=== PATIENT | male | born 1945 ===

== ENCOUNTER 2017-10-09 05:53 | Inpatient (IN) | payer BC, MEDICARE ==
--- OUTSIDE RECORDS SUMMARY | 2017-10-09 05:59 | XMS REPORT ---
:1945 External Reference #:[id number] Author Organization [facility] Address [address] [place] [address] [place] [address] Phone [phone] Care Team Providers Name Role Phone Guy Valverde PA Primary Care Physician Unavailable Payers Type Date Identification Payment Subscriber Numbers Provider Health Maintenance Effective: Policy Number: Medicare [facility] ([facility]) 02/13/2017 [id number] [facility] PayID: [id number] [address] [address] VAHE Rivas [id number] Health Maintenance Expires: Policy Number: Medicare [facility] ([facility]) 11/12/2016 [id number] [facility] Group Number: [id number] [address] [address] PayID: [id number] VAHE R[place] [id number] Medigap Part B Effective: 11/13/2016 Policy Number: Medicare Elvia Bonilla [id number] Expires: 12/13/2016 PayID: [id number] [address] [place] [address] Problems Date Description Provider Status Onset: 07/24/2014 Localized, primary osteoarthritis Cliff Wright M.D. Active Onset: 07/24/2014 Traumatic arthropathy-knee Cliff Wright M.D. Active Onset: 07/24/2014 Closed fracture of upper end of tibia Cliff Wright M.D. Active Onset: 07/24/2014 Arthralgia of the lower leg Cliff Wright M.D. Active Onset: 08/05/2014 Knee joint effusion Cliff Wright M.D. Active Onset: 08/05/2014 Idiopathic progressive polyneuropathy Cliff Wright M.D. Active Onset: 11/13/2014 Unsp fx upper end of r tibia, subs Cliff Wright M.D. Active for clos fx w routn heal Family History Date Family Member(s) Problem(s) Comments General Heart Disease General Cancer General Diabetes Social History Type Date Description Comments Lives With Alone Lives With 2 dogs Occupation Retired ETOH Use Drinks Alcoholic Beverages Rarely Smoking Patient has never smoked Exercise Type/Frequency Exercises regularly Allergies, Adverse Reactions, Alerts Date Description Reaction Status Severity Comments 07/24/2014 NKDA active Medications Medication Date Status Form Strength Qnty SIG Indications Ordering Provider Tylenol Active Tablets 325mg as needed Unknown 00 Ibuprofen Active Tablets 200mg as needed Unknown Ventolin HFA Active Aerosol 108(90Base) 2 puffs Unknown 00 mcg/Act by mouth four times a day as needed Symbicort Active Aerosol 160-4.5mcg/A [address] twice a day Vital Signs Date Vital Result Comment 10/03/2017 Height 72 inches 6'0" Weight 166.00 lb Heart Rate 76 /min BP Systolic Recheck 132 mmHg BP Diastolic Recheck 84 mmHg Respiratory Rate 16 /min Body Temperature 98.0 F BMI (Body Mass Index) 22.5 kg/m2 08/04/2017 Height 72 inches 6'0" Weight 164.00 lb Heart Rate 80 /min BP Systolic Recheck 116 mmHg BP Diastolic Recheck 74 mmHg Respiratory Rate 16 /min Body Temperature 97.4 F BMI (Body Mass Index) 22.2 kg/m2 04/06/2017 Height 72 inches 6'0" Weight 160.00 lb Heart Rate 76 /min BP Systolic Recheck 126 mmHg BP Diastolic Recheck 80 mmHg Respiratory Rate 16 /min Body Temperature 98.3 F BMI (Body Mass Index) 21.7 kg/m2 12/06/2016 Height 72 inches 6'0" Weight 160.00 lb Heart Rate 80 /min BP Systolic Recheck 132 mmHg BP Diastolic Recheck 86 mmHg Respiratory Rate 16 /min Body Temperature 97.6 F BMI (Body Mass Index) 21.7 kg/m2 09/27/2016 Height 72 inches 6'0" Weight 164.00 lb Heart Rate 88 /min BP Systolic Recheck 128 mmHg BP Diastolic Recheck 84 mmHg Respiratory Rate 16 /min Body Temperature 97.7 F BMI (Body Mass Index) 22.2 kg/m2 08/09/2016 Height 72 inches 6'0" Weight 160.00 lb Heart Rate 88 /min BP Systolic Recheck 128 mmHg BP Diastolic Recheck 82 mmHg Respiratory Rate 16 /min Body Temperature 98.0 F BMI (Body Mass Index) 21.7 kg/m2 11/13/2014 Height 73 inches 6'1" Weight 160.00 lb Heart Rate 80 /min BP Systolic Recheck 120 mmHg BP Diastolic Recheck 78 mmHg Respiratory Rate 16 /min Body Temperature 97.7 F Pain Level 0 BMI (Body Mass Index) 21.1 kg/m2 10/30/2014 Height 72 inches 6'0" Weight 140.00 lb Heart Rate 76 /min BP Systolic Recheck 136 mmHg BP Diastolic Recheck 84 mmHg Respiratory Rate 16 /min Body Temperature 98.5 F BMI (Body Mass Index) 19.0 kg/m2 08/12/2014 Height 72 inches 6'0" Weight 150.00 lb Heart Rate 80 /min BP Systolic Recheck 128 mmHg BP Diastolic Recheck 80 mmHg Respiratory Rate 16 /min Body Temperature 98.0 F Pain Level 1 BMI (Body Mass Index) 20.3 kg/m2 08/05/2014 Height 72 inches 6'0" Weight 135.00 lb Heart Rate 80 /min BP Systolic Recheck 124 mmHg BP Diastolic Recheck 80 mmHg Respiratory Rate 16 /min Body Temperature 980.0 F BMI (Body Mass Index) 18.3 kg/m2 07/24/2014 Height 73 inches 6'1" Weight 140.00 lb Heart Rate 104 /min BP Systolic 140 mmHg BP Diastolic 88 mmHg Respiratory Rate 20 /min Body Temperature 98.0 F Pain Level 6 BMI (Body Mass Index) 18.5 kg/m2 Results Test Date Test Result H/L Range Note Inr/Protime 09/25/2017 Inr 0.94 0.77-1.02 Laboratory test finding 09/25/2017 Partial Thrombo 30.2 seconds 26.0- 36.3 Time PTT CBC Auto Diff 09/25/2017 White Blood Count 8.7 10^3/uL 3.5-10.8 Red Blood Count 4.91 10^6/uL 4.00-5.40 Hemoglobin 14.9 g/dL 14.0-18.0 Hematocrit 44 % 42-52 Mean Corpuscular Volume 89 fL 80-94 Mean Corpuscular Hemoglobin 30 pg 27-31 Mean Corpuscular HGB Conc 34 g/dL 31-36 Red Cell Distribution Width 15 % 10.5-15 Platelet Count 281 10^3/uL 150-450 Mean Platelet Volume 7.3 um3 Low 7.4-10.4 Abs Neutrophils 5.7 10^3/uL 1.5-7.7 Abs Lymphocytes 2.0 10^3/uL 1.0-4.8 Abs Monocytes 0.7 10^3/uL 0-0.8 Abs Eosinophils 0.3 10^3/uL 0-0.6 Abs Basophils 0.1 10^3/uL 0-0.2 Abs Nucleated RBC 0 10^3/uL Granulocyte % 65.7 % 38-83 Lymphocyte % 22.5 % Low 25-47 Monocyte % 8.0 % High 0-7 Eosinophil % 3.2 % 0-6 Basophil % 0.6 % 0-2 Nucleated Red Blood Cells % 0.2 Type & Screen 09/25/2017 Patient Blood Type A Positive Antibody Screen NEGATIVE Urinalysis Profile 09/25/2017 Urine Color Yellow Urine Appearance Clear Urine Specific [place] 1.014 1.010-1.030 Urine pH 6.0 5-9 Urine Urobilinogen Negative Negative Urine Ketones Negative Negative Urine Protein Negative Negative Urine Leukocytes Negative Negative Urine Blood 2+ Negative Urine Nitrite Negative Negative Urine Bilirubin Negative Negative Urine Glucose Negative Negative Urine White Blood Cell Trace(0-5/hpf) Absent Urine Red Blood Cell 2+(6-10/hpf) Absent Urine Bacteria Absent Absent Urine Squamous Epithelial Cell Present Absent Comp Metabolic Panel 09/25/2017 Sodium 137 mmol/L 135-145 Potassium 4.2 mmol/L 3.5-5.0 Chloride 101 mmol/L 101-111 Co2 Carbon Dioxide 26 mmol/L 22-32 Anion Gap 10 mmol/L 2-11 Calcium 9.6 mg/dL 8.6-10.3 Albumin 4.6 g/dL 3.2-5.2 Total Bilirubin 0.60 mg/dL 0.2-1.0 Glucose 91 mg/dL 70-100 Blood Urea Nitrogen 12 mg/dL 6-24 Creatinine 0.88 mg/dL 0.67-1.17 BUN/Creatinine Ratio 13.6 8-20 Total Protein 7.4 g/dL 6.4-8.9 Globulin 2.8 g/dL 2-4 Albumin/Globulin Ratio 1.6 1-3 Alkaline Phosphatase 52 U/L 34-104 Alt 28 U/L 7-52 Ast 37 U/L 13-39 Egfr Non- 85.1 >60 Egfr 103.0 >60 1 Urine Culture And 09/25/2017 Urine Culture SEE RESULT BELOW 2 Sensitivities Laboratory test finding 08/05/2014 Body Fluid Cult & Gram SEE RESULT BELOW 3 Stain 1 Because ethnic data is not always readily available, this report includes an eGFR for both -Americans and non- Americans. The National Kidney Disease Education Program (NKDEP) does not endorse the use of the MDRD equation for patients that are not between the ages of 18 and 70, are , have extremes of body size, muscle mass, or nutritional status, or are non- or non-. According to the National Kidney Foundation, irrespective of diagnosis, the stage of the disease is based on the level of kidney function: Stage Description GFR(mL/min/1.73 m(2)) 1 Kidney damage with normal or decreased GFR 90 2 Kidney damage with mild decrease in GFR 60-89 3 Moderate decrease in GFR 30-59 4 Severe decrease in GFR 15-29 5 Kidney failure <15 (or dialysis) 2 SEE RESULT BELOW Name: ELVIA BONILLA Kapil : [address]: Claudio Zavala MD Acct: [id number] Unit: [id number] AGE: 72 Location: [facility] Re09/25/17 SEX: M Status: REG REF SPEC: [id number] YOLY: 09/25/17-[address] [facility] [address]: Claudio Zavala MD REQ: [id number] RECD: 09/25/17 STATUS: SHELBY BAE DR: Guy Valverde Jr PA _ SOURCE: URINE SPDESC: ORDERED: Urine Culture QUERIES: Urine Source: Clean Catch Procedure Result Reported Site Urine Culture Final 09/26/17- 1306 ML No growth of clinically significant organisms * ML - Main Lab . END OF REPORT DEPARTMENT OF PATHOLOGY, [address] [place] [address] Mickey Miner M.D. Director KENDY # [id number] 3 SEE RESULT BELOW Name: ELVIA BONILLA : [address]: Cliff Wright MD Acct: [id number] Unit: [id number] AGE: 69 Location: [facility] Re08/05/14 SEX: M Status: REG REF SPEC: [id number] YOLY: 08/05/14-[address]: Cliff rWight MD REQ: [id number] RECD: 08/06/14 STATUS: COMP _ SOURCE: JOINT FLUI SPDESC:KNEE ORDERED: BF Cult/GS Procedure Result Verified Site Body Fluid Gram Stain Final 08/06/14- 1532 ML No Neutrophils Observed No Organisms Seen Preparation By Cytospin Smear Body Fluid Culture Final 08/09/14- 1020 ML No Growth Day 4 * ML - MAIN LAB ([facility]) . END OF REPORT * ML=Testing performed at Main Lab DEPARTMENT OF PATHOLOGY, [address] [place] [address] Mickey Miner M.D. Director [facility] # [id number] Procedures Date CPT Code Description Status 08/04/2017 Inject/Drain Joint/Bursa Major W/O US Completed 04/06/2017 Inject/Drain Joint/Bursa Major W/O US Completed 12/06/2016 Inject/Drain Joint/Bursa Major W/O US Completed 08/09/2016 Inject/Drain Joint/Bursa Major W/O US Completed 04/22/2015 03266 Diffusing Capacity Completed 04/22/2015 59493 Plethysmography Determination Lung Volumes & Per Airway Completed Resist 04/22/2015 12366 Spirometry Incl Graphic Record Completed 08/05/2014 Inject/Drain Joint/Bursa Major W/O US Completed Encounters Type Date Location Provider CPT E/M Dx Office Visit 08/04/2017 [facility] Claudio Zavala 55339 M12.561 11:00a Of [facility] Office Visit 04/06/2017 [facility] Claudio Zavala 23003 M12.561 9:45a Of [facility] Office Visit 12/06/2016 [facility] Claudio Zavala 38292 M12.561 11:00a Of [facility] R25.1 Office Visit 09/27/2016 1:00p [facility] Claudio Zavala 93883 M12.561 [facility] Office Visit 08/09/2016 2:00p [facility] Claudio Zavala 80364 M12.561 [facility] 11/13/2014 9:30a [facility] Cliff Wright, 02561 M12.561 [facility] M25.461 S82.101D Office Visit 10/30/2014 10:15a [facility] Cliff Wright, 51128 716.16 [facility] 356.4 719.46 715.16 719.06 Office Visit 08/12/2014 10:45a [facility] Cliff Wright, 62060 716.16 [facility].4 719.46 Office Visit 08/05/2014 3:15p [facility] Cliff Wright, 52402 715.16 [facility] 716.16 719.46 719.06 356.4 Office Visit 07/24/2014 1:00p [facility] Cliff Wright, 68417 715.16 [facility] 716.16 823.00 719.46 Plan of Care Future Appointment(s):10/09/2017 7:30 pm - Biju Mtz PA-C at [facility]10/09/2017 7:30 pm - Claudio Zavala M.D. at [facility]10/03/2017 - Claudio Zavala M.D.M12.561 Traumatic arthropathy , right kneeFollow up:5 weeks
[2017-10-09] MEDS ORDERED: Buffered Lidocaine 0.9% SYRIN* 5 ML/SYR SYRINGE INTRADERM ONE (06:00)
[2017-10-09] MEDS ORDERED: celeCOXIB CAP* 200 MG PO ONE (06:00)
[2017-10-09] MEDS ORDERED: Famotidine IV* 10 MG/ML 2 ML (20 mg) IV ONE (06:00)
[2017-10-09] MEDS ORDERED: Gabapentin CAP(*) 300 MG PO ONE (06:00)
[2017-10-09] MEDS ORDERED: Levalbuterol 0.63MG/3ML NEB* UNIT OF USE INH ONE ×2 (06:00→06:12)
[2017-10-09] MEDS ORDERED: Acetaminophen TAB* 325 MG PO ONE (06:00)
[2017-10-09] MEDS ORDERED: Gabapentin CAP(*) 300 MG ONE (06:11)
[2017-10-09] MEDS ORDERED: Famotidine IV* 10 MG/ML 2 ML (20 mg) ONE (06:11)
[2017-10-09] MEDS ORDERED: celeCOXIB CAP* 100 MG ONE (06:11)
[2017-10-09] MEDS ORDERED: ceFAZolin 2 GM PREMIX (*) 2 GM/50 ML BAG IVPB ONE (06:12)
[2017-10-09] MEDS ORDERED: Acetaminophen TAB* 325 MG ONE (06:12)
[2017-10-09] MEDS ORDERED: Lidocaine 2% PF * 5 ML VIAL ONE (06:59)
[2017-10-09] MEDS ORDERED: Propofol* 10 MG/ML 20 ML BTL IV PUSH ONE (06:59)
[2017-10-09] MEDS ORDERED: fentaNYL* 50 MCG/ML 2 ML VIAL (100 MCG VIAL) ONE ×2 (06:59→10:11)
[2017-10-09] MEDS ORDERED: Ondansetron INJ* 2 MG/ML VIAL ONE ×2 (06:59→13:58)
[2017-10-09] MEDS ORDERED: KETAMINE HCL* 50 MG/ML 10 ML VIAL ONE (06:59)
[2017-10-09] MEDS ORDERED: Ketorolac INJ* 30 MG/ML 1 ML VIAL ONE (06:59)
[2017-10-09] MEDS ORDERED: ROPIVACAINE 5 MG/ML 30 ML BTL (0.5%) ONE (06:59)
[2017-10-09] MEDS ORDERED: Dexamethasone IV* 4 MG/ML 1 ML (4 MG) ONE (06:59)
[2017-10-09] MEDS ORDERED: Midazolam* 1 MG/ML 5 ML VIAL (5 MG) ONE (06:59)
[2017-10-09] MEDS ORDERED: Tranexamic Acid 1,000 MG/10 ML SDV IV ONE (07:17)
[2017-10-09] MEDS ORDERED: Bupivacaine 0.25% W/EPI* 10 ML SDV ONE (07:24)
[2017-10-09] MEDS ORDERED: Cisatracurium* 2 MG/ML MDV 5 ML ONE (07:34)
[2017-10-09] MEDS ORDERED: EPHEDrine (Pressors)* 50 MG/ML VIAL ONE (07:44)
[2017-10-09] MEDS ORDERED: Naloxone* 0.4 MG/ML 1 ML VIAL IV PRN (08:46)
[2017-10-09] MEDS ORDERED: Ondansetron INJ* 2 MG/ML VIAL IV PRN ×2 (08:46→09:42)
[2017-10-09] MEDS ORDERED: fentaNYL* 50 MCG/ML 2 ML VIAL (100 MCG VIAL) IV PRN (08:46)
[2017-10-09] MEDS ORDERED: HYDROmorphone INJ1* 1 MG/ML SYRINGE ONE (09:19)
[2017-10-09] MEDS ORDERED: Magnesium Hydroxide LIQ* 30 ML UDC PO PRN (09:42)
[2017-10-09] MEDS ORDERED: Morphine INJ* 2 MG/ML 1 ML SYRINGE (TWO MG - NEW SYRINGE VERSION) IV PRN (09:42)
[2017-10-09] MEDS ORDERED: Bisacodyl SUPP* 10 MG SUPP PR PRN (09:42)
[2017-10-09] MEDS ORDERED: diPHENhydraMINE IV* 50 MG/ML 1 ml VIAL (BENADRYL) IV PRN (09:42)
[2017-10-09] MEDS ORDERED: Albuterol 2.5 MG/3 ML NEB.SOL* (0.083%) INH PRN (09:47)
--- NOTE | 2017-10-09 10:41 | RAD ---
Indication: Status post RIGHT total knee replacement. Comparison: None. Technique: RIGHT knee: AP and crosstable lateral views. Report: RIGHT total knee prosthesis is normally located. Negative for periprosthetic fracture. Anterior cutaneous enrique. Joint effusion and gas. Subcutaneous tissue edema and emphysema. IMPRESSION: #. Unremarkable immediate postop appearance following RIGHT total knee replacement.
[2017-10-09] MEDS: Acetaminophen TAB* 325 MG PO SCH ×3 (14:34→23:58)
[2017-10-09] MEDS ORDERED: celeCOXIB CAP* 100 MG PO ONE (15:00)
[2017-10-09] MEDS: oxyCODONE TAB* 5 MG TAB PO PRN ×2 (15:07→23:58)
--- NOTE | 2017-10-09 15:35 | OP ---
DATE OF OPERATION: 10/09/17 - ROOM #[id number] DATE OF : [birth year] SURGEON: Claudio Zavala MD ASSEMBLER TRIM: Biju Mtz RPA ANESTHESIA: General endotracheal. PRE-OP DIAGNOSIS: Traumatic arthrosis, right knee. POST-OP DIAGNOSIS: Traumatic arthrosis, right knee. OPERATIVE PROCEDURE: Right total knee arthroplasty. ESTIMATED BLOOD LOSS: Less than 50 cc. COMPLICATIONS: None. HARDWARE: Jt Persona #7 femur, G tibia, 10-mm polyethylene spacer, 38-mm all-polyethylene patellar button. SUMMARY: Mr. Bonilla is a 72-year-old male who has been having troubles with his right knee for sometime. He had been treated initially by Dr. Lee at [place] for a meniscus tear and undergone a knee arthroscopy. He still felt pain afterwards and then several years later sustained a minimally displaced tibial plateau fracture that was treated non-operatively but he slowly had increasing pain afterwards. He had been treated conservatively when he presented to me approximately 2 years ago. Physical therapy, anti- inflammatories, and injections all did help some but recently none of them have been giving the relief that he needs. He lives alone and still takes care of the animals and was very interested in having the knee fixed so that it would no longer bother him. I discuss with him that a knee arthroplasty should work well to decrease his pain and improve his function. Risks of surgery such as infection, scar formation, stiffness, DVT, pulmonary embolism, hardware failure , and continued pain were some of the risks discussed. He had a neuropathy which had been worked up years ago and he states that they told him nothing can be done for it. So he already has pre-existing foot numbness as well as bilateral foot drops. He had been declared medically optimized and wished to proceed. DESCRIPTION OF PROCEDURE: The patient was brought to the OR and general endotracheal anesthesia was established. Schmidt catheter was placed. Tourniquet was placed over the proximal right thigh and was used during the case. Total tourniquet time would be 66 minutes. Right knee was prepped and then draped. Skin over the incisional area was infiltrated using 20 cc of 0.25 % Marcaine with epinephrine. Esmarch was used to exsanguinate the leg and the tourniquet was raised. Midline incision was made beginning 5 cm above the superior pole of patella and carried down to the medial side of the tibial tubercle. He was lean and he had very little subcutaneous fat. Few small bleeders encountered were ligated using electrocautery. Medial parapatellar arthrotomy was made. Quite a bit of yellowish clear thick joint fluid was encountered. Fat pad was sharply excised and the soft tissues were sharply elevated from the medial side of the tibia. Patella measured almost 30 mm in thickness and a 12 mm cut was taken. Patella was then easily subluxated laterally and the knee was flexed up. Nice exposure of the distal femur was obtained. He had quite hypoplastic lateral femoral condyle and the drill guide was set at 2 degrees and set initially to resect 2 mm. I would not even touch his lateral femoral condyle in that position. Additional 2 mm was set on the cutting guide and cutting guide was then pinned into place. Distal femoral cut was taken but I did not even come down to the top of the intercondylar notch. Additional 2 mm were taken and I now flattened out the notch. Femur was sized and 7 sat very nicely. Holes were drilled and it could be seen where I would notch the femur and this was moved up 3 steps by inverting the cutting guide, drilling holes, and then checking again. Once the drill came out right on the top side of the cortex, cutting guide was pinned into place and the anterior and posterior femoral cuts followed by the chamfer cuts were taken. Bone was removed and attention was turned to the tibia. Step drill was used to open the tibial canal and intramedullary guide was placed. Outrigger was assembled and adjusted until it appeared, it would take 2 mm from the medial side. Cutting guide was then pinned into place and rotation was double checked. Alignment appeared perfect. Proximal tibial cut was taken and appeared a nice cut was obtained. Spacer block was placed and it was little loose in flexion, as the system is designed to take an additional 2 mm posteriorly and he locked out perfectly into extension with the leg nice and straight. Alignment with the drop darci in the spacer block also looked perfect in flexion. Proximal tibia was sized and the G sat very nicely. Proximal tibia was drilled and then punched. Femur had the 7 placed and notch cut was finished. A 10-mm polyethylene was placed and he had wonderful motion and stability. He locked out easily into full extension and would flex past 135 degrees. He was stable throughout. Patella even without the component track perfectly as well. Patella was sized and a 38 seemed to fit best. Holes were drilled and trial was snapped into place. Patella tracking was still perfect. Trial instrumentation was removed and the knee was copiously pulse lavaged. Cement was being prepared. Tibia followed by femur and patella were all cemented into place. Extra cement was removed and cement was allowed to harden. Once the cement had hardened, he was trialed again with the 10 with same wonderful motion and stability. 10 was removed and the knee was searched for small pieces of cement and several pieces were found. Knee was again copiously pulse lavaged. Additional 20 cc of 0.25% Marcaine was placed posteriorly behind the knee and another 10 was placed into each of the gutters. 10 polyethylene was then snapped into place. Knee was again copiously pulse lavaged and parapatellar arthrotomy was repaired using interrupted #1 Vicryl sutures. Tourniquet was let down and no significant bleeding was encountered. Subcutaneous tissue was reapproximated using 2-0 Vicryl. Skin was closed using enrique. Sterile dressing and a Cryo/Cuff were applied in the OR. The patient was then extubated in the OR and was stable on transfer to the recovery room. [id number]/[facility] #: [id number] LARISA
[2017-10-09] MEDS: ceFAZolin 1 GM in Dextrose (*) 1 GM/50 ML BAG IVPB SCH ×2 (16:45→23:56)
[2017-10-09] MEDS ORDERED: Warfarin TAB(*) 7.5 MG PO ONE (17:00)
[2017-10-09] MEDS: Mometasone/Formoter 200/5 MDI INH SCH (20:26)
--- NOTE | 2017-10-09 21:13 | CONS ---
CC: CHANTEL Pierre; Claudio Zavala MD * CONSULTATION REPORT: DATE OF CONSULT: 10/09/17 PRIMARY CARE PROVIDER: CHANTEL Pierre PHYSICIAN REQUESTING CONSULTATION: Claudio Zavala MD ATTENDING PHYSICIAN: Mercedes Villatoro MD (dictated by Ignacia Grossman NP) REASON FOR CONSULTATION: Hypoxia postoperatively. HISTORY OF PRESENT ILLNESS: Mr. Bonilla is a 72-year-old male with past medical history significant for Xurjukm-Xnlke-Bpmit muscular atrophy, locomotor ataxia, sinus bradycardia, erectile dysfunction, hypertension, hyperlipidemia, asthma, and hiatal hernia who presented to the hospital for an elective right total knee arthroplasty with Dr. Zavala. The patient states that leading up to his procedure, he has been in his usual state of health. Denies any recent fevers, chills, chest pain, shortness of breath, nausea, vomiting, diarrhea. The patient states that he uses oxygen at 2 L via nasal cannula at night, but is unaware of the diagnosis of sleep apnea. He has baseline numbness and tingling in his feet. The hospitalists were asked to assist with co-medical management of this patient during his hospitalization. PAST MEDICAL HISTORY: 1. Euenrgs-Gkway-Ybarg muscular atrophy. 2. Locomotor ataxia. 3. Sinus bradycardia. 4. Erectile dysfunction. 5. Hypertension. 6. Hyperlipidemia. 7. Asthma. 8. Hiatal hernia. 9. COPD. PAST SURGICAL HISTORY: 1. Status post right knee surgery. 2. Status post right shoulder surgery. MEDICATIONS: Home medications include: 1. Albuterol 1.25 mg/3 mL nebulizer solution 3 mL as needed every 4 hours for shortness of breath or wheeze. 2. Symbicort 160/4.5 mcg 2 puffs inhalation twice daily. 3. ProAir HFA 180 mcg 2 puffs inhalation every 4 hours as needed for shortness of breath or wheeze. 4. Oxygen 2 L via nasal cannula at night. 5. Acetaminophen 500 mg oral as needed for pain. 6. Motrin 600 mg oral as needed for pain. ALLERGIES: No known drug allergies. FAMILY HISTORY: The patient's father had a history of coronary artery disease, cardiomyopathy. Sister and mother with a history of diabetes mellitus. A brother with a history of spinal cancer. SOCIAL HISTORY: The patient is a former smoker. He quit smoking over 40 years ago. Prior to that, he had approximate 10 year of half a pack a day smoking history. Denies alcohol or recreational drug use. His daughter Marilynn Sotomayor will be his surrogate decision maker in the event that he is unable to make decisions for himself. REVIEW OF SYSTEMS: I performed an 11-point review of systems. All the pertinent positives and negatives are mentioned in the history of present illness. The remaining review of systems are negative. PHYSICAL EXAMINATION: Vital Signs: Temperature 97.6, heart rate 75, respiratory rate 12, O2 sat 97% on 3 L via nasal cannula, blood pressure 122/ 42. General Appearance: The patient is alert, pleasant, appears to be in no acute distress. HEENT: Normocephalic, atraumatic. Pupils are equal and reactive to light. Extraocular movements are intact. Neck is supple. There is no lymphadenopathy noted. Respiratory: There is no accessory muscle use. Lungs are clear to auscultation bilateral. Cardiac: Regular rate and rhythm. S1, S2 present. There are no murmurs, rubs, or gallops heard. Abdomen: Soft, nontender, nondistended. There are bowel sounds present x4. Extremities: No lower extremity edema. DP and PT pulses are 2+ and symmetric. Musculoskeletal : There is no clubbing or cyanosis noted. The patient exhibits good strength in all extremities. Neurological: The patient is alert and oriented x4. Cranial nerves II through XII are grossly intact. Psychological: The patient is calm and cooperative. Skin: There are no rashes or abnormalities seen. The patient has a dressing to his right knee that is clean, dry, and intact. LABORATORY DATA: Preoperative labs from 09/25/17 revealed sodium 137, potassium 4.3, chloride 101, CO2 of 26, BUN 12, creatinine 0.88, glucose 91. White blood cell count 8.7, hemoglobin 14.9, hematocrit 44, platelet count 281, 000. IMPRESSION: Mr. Bonilla is a 72-year-old male with past medical history significant for chronic obstructive pulmonary disease, Jytydjb-Yquvi-Hhone muscular atrophy, sinus bradycardia, hypertension, hyperlipidemia who presented to the hospital for an elective right total knee arthroplasty with Dr. Zavala. Hospitalists have been asked to assist with co-medical management in this patient during this hospitalization. ASSESSMENT/PLAN: 1. Osteoarthritis. The patient is status post right total knee arthroplasty with Dr. Zavala. Management will be per Orthopedic Surgery. He will have his H and H trended. He will have a Schmidt catheter in place until the morning. He will be placed on a pain management regimen and a bowel regimen. 2. Hypoxia. The patient has been noted to be hypoxic in his postoperative period while he is sleeping, with oxygen saturations down to 83% documented. The patient will be monitored on capnography overnight. We will do an overnight pulse oximetry study. The patient already wears oxygen at 2 L via nasal cannula at night. We will keep him on oxygen overnight. He may benefit from a formal sleep study outpatient after discharge. 3. Hypertension. The patient is currently normotensive. He is not currently on any medications. 4. Hyperlipidemia. The patient is not currently on any statins and will continue to follow with his PCP. 5. Chronic obstructive pulmonary disease and asthma. The patient will be continued on his home nebulizers and inhalers. He has no sign of a chronic obstructive pulmonary disease exacerbation at this time. 6. Fluids, electrolytes, and nutrition. The patient will be on a clear liquid , advance diet to regular as tolerated. 7. Code status. Full code. 8. DVT prophylaxis. The patient will be on warfarin per Orthopedics. 9. Disposition. Inpatient with disposition per Orthopedic Surgery. TIME SPENT: Time for this consultation was approximately 60 minutes, greater than half of that was spent with the patient discussing medications, past medical history, the events leading up to his arrival today, performing a physical examination. Case has been reviewed with the attending, Dr. Villatoro, who agrees with the plan of care. Reviewed by HILARY HUNTLEY 10/11/17 [id number]/[facility] #: [id number] LARISA
[2017-10-09] MEDS: Docusate CAP* 100 MG PO SCH (21:27)
[2017-10-09] MEDS: traMADol TAB* 50 MG PO PRN (21:27)
[2017-10-09] MEDS: Magnesium Hydroxide LIQ* 30 ML UDC PO SCH (21:28)
[2017-10-10] MEDS: Cyclobenzaprine TAB* 10 MG PO PRN (01:47)
[2017-10-10] MEDS: traMADol TAB* 50 MG PO PRN ×2 (04:33→13:27)
[2017-10-10] MEDS: oxyCODONE TAB* 5 MG TAB PO PRN ×4 (06:09→20:34)
[2017-10-10 07:01] LABS: Hematocrit 34 % (42-52); Hemoglobin 11.8 g/dl (14.0-18.0); Mean Platelet Volume 7.2 um3 (7.4-10.4); Platelet Count 192 10^3/ul (150-450)
[2017-10-10 07:19] LABS: INR 1.06 (0.77-1.02)
[2017-10-10 07:23] LABS: EGFR Non-African American 100.8 (>60)
[2017-10-10] MEDS: Acetaminophen TAB* 325 MG PO SCH ×3 (07:29→22:45)
[2017-10-10] MEDS: Docusate CAP* 100 MG PO SCH ×2 (07:30→20:35)
[2017-10-10] MEDS: Magnesium Hydroxide LIQ* 30 ML UDC PO SCH ×2 (07:31→20:35)
[2017-10-10] MEDS: Mometasone/Formoter 200/5 MDI INH SCH ×2 (07:33→20:50)
[2017-10-10] MEDS: ceFAZolin 1 GM in Dextrose (*) 1 GM/50 ML BAG IVPB SCH (07:34)
--- NOTE | 2017-10-10 08:09 | PN ---
Progress Note - Progress Note Date of Service: 10/10/17 SOAP: Subjective: [Pt seen this morning sitting up in bed eating breakfast. He states that he is doing well. Pain is well controlled. States that he has been up two times. Pt denies any chest pain, SOB, nausea or vomiting.] Objective: [General: A&O x3. NAD MSK, RLE: Dressing is c/d/i. Cyrotherapy unit is being used also. unable to df/ pf fully, pt does have a foot drop at baseline and decreased sensation. Sensation is decreased to light touch. The pt has a 2+ DP pulse. Able to raise thigh and calf off bed. ] Vital Signs Temp 97.6 F 10/10/17 03:54 Pulse 58 10/10/17 03:54 Resp 13 10/10/17 06:14 BP 94/56 10/10/17 03:54 Pulse Ox 96 10/10/17 06:14 Intake & Output 10/09/17 10/10/17 10/10/17 18:59 06:59 18:59 Intake Total 1450 1100 Output Total 220 1325 Balance 1230 -225 Intake: IV Fluids 1450 LR 1450 Oral 1100 Output: Schmidt 200 1325 Residual 20 Schmidt 16 Fr 20 Other: # Bowel Movements 0 Assessment: [POD 1 RTKA ] Plan: [-continue with post op abx, finish today - Continue with PT/OT - Hospitalists consulted due to episodes of apnea - INR is 1.06 after 7.5 of warfarin last night. Will give 10mg tonight. ]
[2017-10-10] MEDS: Heparin VIAL(*) 5000 UNITS/ML VIAL (FIVE THOUSAND) SUBCUT SCH ×3 (13:55→22:46)
--- NOTE | 2017-10-10 14:53 | PN ---
Subjective Date of Service: 10/10/17 Interval History: pt reports he did well with PT today reports pain 6/10 in right knee. he was able to take a long nap today and now feels better. He reports at home he uses 2L NC at night. reports good appetite today stating his nausea resolved. Objective Active Medications: Acetaminophen (Tylenol Tab*) 975 mg PO Q8H [facility] Last Admin: 10/10/17 07:29 Dose: 975 mg Albuterol (Ventolin 2.5 Mg/3 Ml Neb.Eda*) 2.5 mg INH Q4H PRN PRN Reason: SOB/WHEEZING Bisacodyl (Dulcolax Supp*) 10 mg DC DAILY PRN PRN Reason: constipation Cyclobenzaprine HCl (Flexeril Tab*) 5 mg PO TID PRN PRN Reason: SPASMS Last Admin: 10/10/17 01:47 Dose: 5 mg Diphenhydramine HCl (Benadryl Iv*) 25 mg IV Q6H PRN PRN Reason: itching Docusate Sodium (Colace Cap*) 100 mg PO BID [facility] Last Admin: 10/10/17 07:30 Dose: 100 mg Heparin Sodium (Porcine) (Heparin Vial(*)) 5,000 units SUBCUT Q8HR [facility] Last Admin: 10/10/17 13:56 Dose: Not Given Lactated Ringer's (Lactated Ringers 1000 Ml Bag*) 1,000 mls @ 75 mls/hr IV PER RATE [facility] Last Admin: 10/10/17 03:47 Dose: 75 mls/hr Lactulose (Lactulose*) 30 ml PO Q6H PRN PRN Reason: constipation Magnesium Hydroxide (Milk Of Magnesia Liq*) 30 ml PO BID [facility] Last Admin: 10/10/17 07:31 Dose: 30 ml Magnesium Hydroxide (Milk Of Magnesia Liq*) 30 ml PO Q6H PRN PRN Reason: constipation Mometasone Furoate/Formoterol Fumar (Dulera 200/5 Mdi*) 2 puff INH BID [facility]; Protocol Last Admin: 10/10/17 07:33 Dose: 2 puff Morphine Sulfate (Morphine Inj ((Syringe))*) 2 mg IV Q2H PRN PRN Reason: PAIN - UNCONTROLLED Ondansetron HCl (Zofran Inj*) 4 mg IV Q6H PRN PRN Reason: nausea Last Admin: 10/09/17 14:03 Dose: 4 mg Oxycodone HCl (Roxycodone Tab*) 10 mg PO Q4H PRN PRN Reason: PAIN - SEVERE Last Admin: 10/10/17 10:17 Dose: 10 mg Pharmacy Profile Note (Coumadin Daily Reminder*) 0 note FOLLOW UP 1700 TESFAYE Last Admin: 10/09/17 16:48 Dose: 1 note Tramadol HCl (Ultram*) 50 mg PO Q6H PRN PRN Reason: PAIN Last Admin: 10/10/17 13:27 Dose: 50 mg Warfarin Sodium (Coumadin Tab(*)) 10 mg PO ONCE@1700 ONE; Protocol Stop: 10/10/17 17:01 Vital Signs - 8 hr 10/10/17 10/10/17 10/10/17 07:44 07:46 07:50 Temperature 97.5 F 97.4 F Pulse Rate 62 59 Respiratory 16 16 18 Rate Blood Pressure 102/57 (mmHg) O2 Sat by Pulse 96 97 94 Oximetry 10/10/17 10/10/17 10/10/17 08:32 10:17 11:36 Temperature 98.0 F Pulse Rate 51 Respiratory 18 18 17 Rate Blood Pressure 110/25 (mmHg) O2 Sat by Pulse 98 Oximetry 10/10/17 10/10/17 12:47 13:27 Temperature Pulse Rate Respiratory 18 16 Rate Blood Pressure (mmHg) O2 Sat by Pulse Oximetry Oxygen Devices in Use Now: None Appearance: 72 yo male A+O x3 in NAD Eyes: No Scleral Icterus, PERRLA Ears/Nose/Mouth/Throat: Mucous Membranes Moist, - - multiple missing teeth Neck: NL Appearance and Movements; NL JVP Respiratory: Symmetrical Chest Expansion and Respiratory Effort, Clear to Auscultation Cardiovascular: NL Sounds; No Murmurs; No JVD, RRR, No Edema Abdominal: NL Sounds; No Tenderness; No Distention Extremities: - - right knee to cryo unit intact - peripheral extremities are warm, pink dry. 2+ DP pulses Neurological: Alert and Oriented x 3, NL Sensation Lines/Tubes/Other Access: Clean, Dry and Intact Peripheral IV Nutrition: Taking PO's Result Diagrams: 10/10/17 06:23 10/10/17 06:23 Assess/Plan/Problems-Billing Assessment: - Patient Problems (1) Status post total right knee replacement Comment: POD #1 Dispo per surgery Pain management Bowel regimen PT/OT (2) Hypoxia Comment: - resolved. Suspect secondary to anesthesia - DC capnography. Pulse oximetry looks good overnight - continue 2L QHS - would benefit sleep study as outpatient - discussed with daughter and pt to follow up with PCP (3) COPD (chronic obstructive pulmonary disease) Comment: stable uses 2L NC at night (4) Zvbfmdb-Eqign-Neevq atrophy (5) HTN (hypertension) Comment: - not on home meds. - BPs stable - continue to monitor (6) Sinus bradycardia Comment: stable (7) DVT prophylaxis Comment: - HSQ Status and Disposition: inpatient. Dispo per Ortho. [facility]
[2017-10-10] MEDS ORDERED: Warfarin TAB(*) 10 MG PO ONE (17:00)
[2017-10-10] MEDS ORDERED: Ketorolac INJ* 15 MG/ML 1 ML VIAL IV PUSH ONE (17:30)
[2017-10-11] MEDS: traMADol TAB* 50 MG PO PRN ×4 (02:11→20:37)
[2017-10-11] MEDS: oxyCODONE TAB* 5 MG TAB PO PRN ×4 (03:43→16:41)
[2017-10-11] MEDS: Cyclobenzaprine TAB* 10 MG PO PRN (05:38)
[2017-10-11 05:39] LABS: Hematocrit 32 % (42-52); Hemoglobin 10.8 g/dl (14.0-18.0); Mean Platelet Volume 7.2 um3 (7.4-10.4); Platelet Count 175 10^3/ul (150-450)
[2017-10-11] MEDS: Heparin VIAL(*) 5000 UNITS/ML VIAL (FIVE THOUSAND) SUBCUT SCH ×3 (05:39→21:53)
[2017-10-11 05:47] LABS: INR 1.83 (0.77-1.02)
[2017-10-11] MEDS: Mometasone/Formoter 200/5 MDI INH SCH ×2 (07:33→20:12)
[2017-10-11] MEDS: Acetaminophen TAB* 325 MG PO SCH ×3 (07:39→23:01)
[2017-10-11] MEDS: Docusate CAP* 100 MG PO SCH ×2 (07:40→20:27)
[2017-10-11] MEDS: Magnesium Hydroxide LIQ* 30 ML UDC PO SCH ×2 (08:31→20:27)
--- NOTE | 2017-10-11 10:35 | PN ---
Progress Note - Progress Note Date of Service: 10/11/17 SOAP: Subjective: []Patient feels well with no complaints. His right knee pain is tolerable. Denies chest pain, shortness of breath, dizziness, nausea. Objective: []General: Well appearing, NAD RLE: Dressing changed. Incision CDI with moderate ecchymosis of the knee, no erythema, fluctuance or induration. Unable to DF/PF well which is baseline. 2+ DP pulse. Cap refill less than two seconds distally Calves supple and nontender without erythema, edema or palpable cords Assessment: []POD 2 RTKA Plan: WBAT PT/OT heparin, coumadin 4 mg today Expect DC home today Vital Signs Temp 98.2 F 10/11/17 07:43 Pulse 71 10/11/17 07:43 Resp 18 10/11/17 08:22 BP 116/63 10/11/17 07:43 Pulse Ox 95 10/11/17 07:53 Intake & Output 10/10/17 10/11/17 10/11/17 18:59 06:59 18:59 Intake Total 1520 2695 837 Output Total 400 0 0 Balance 1120 2695 837 Intake: IV Fluids 1055 837 ABX - CEFAZOLIN 55 LR 1000 837 Oral 1520 1640 Output: Urine 400 0 0 Other: Estimated Void Medium Date of Last Bowel 10/11/17 Movement # Bowel Movements 1 Estimated Stool Amount Medium # Voids 1 Laboratory Last Values Hgb 10.8 g/dl (14.0-18.0) L 10/11/17 05:19 Hct 32 % (42-52) L 10/11/17 05:19 Plt Count 175 10^3/ul (150-450) 10/11/17 05:19 MPV 7.2 um3 (7.4-10.4) L 10/11/17 05:19 INR (Anticoag Therapy) 1.83 (0.77-1.02) H 10/11/17 05:19 Sodium 135 mmol/L (135-145) 10/10/17 06:23 Potassium 4.0 mmol/L (3.5-5.0) 10/10/17 06:23 Chloride 103 mmol/L (101-111) 10/10/17 06:23 Carbon Dioxide 27 mmol/L (22-32) 10/10/17 06:23 Anion Gap 5 mmol/L (2-11) 10/10/17 06:23 BUN 12 mg/dL (6-24) 10/10/17 06:23 Creatinine 0.76 mg/dL (0.67-1.17) 10/10/17 06:23 Est GFR ( Amer) 122.0 (>60) 10/10/17 06:23 Est GFR (Non-Af Amer) 100.8 (>60) 10/10/17 06:23 BUN/Creatinine Ratio 15.8 (8-20) 10/10/17 06:23 Glucose 105 mg/dL (70-100) H 10/10/17 06:23 Calcium 8.5 mg/dL (8.6-10.3) L 10/10/17 06:23
--- NOTE | 2017-10-11 21:01 | DS ---
DISCHARGE SUMMARY: DATE OF ADMISSION: 10/09/17. DATE OF DISCHARGE: 10/12/17 PROVIDER DOCTOR: Claudio Zavala MD.* (DICTATED BY CHANTEL GRAHAM) HACK SAW OPERATOR: CHANTEL Kirkland. PRE-OP DIAGNOSIS: Traumatic arthrosis, right knee. OPERATIVE PROCEDURE: Right total knee arthroplasty. HISTORY: Mr. Bonilla is a 72-year-old male who was having trouble for his right knee for sometime. He has failed conservative management and elected to undergo a right total knee arthroplasty. HOSPITAL COURSE: The patient was admitted to [facility] on . He underwent a right total knee arthroplasty without complications. Postop day 1, he is well-appearing, in no acute distress. Dressing is clean, dry, and intact. He was unable to fully dorsiflex and plantar flex due to foot drop baseline, as well as decreased sensation at baseline. Postop day 2, well- appearing in no acute distress. Dressing was changed. Incision clean, dry and intact with moderate ecchymosis of the knee without erythema, fluctuans or induration still as consistent with his baseline. No dorsiflexion, plantar flexion and decreased sensation. DP pulse is 2+. Capillary refill less than 2 seconds distally. POD three he feels well, knee with moderate ecchymosis no erythema or drainage from incision. Vital Signs: Temperature 98.2, pulse 71, respiratory rate 18, blood pressure 116/62, pulse oximetry 95. Hemoglobin 10.8, hematocrit 32, INR 1.83. The patient managed goals with physical therapy and was deemed to be medically and orthopedically stable for discharge home. DISCHARGE MEDICATIONS: 1. Ventolin nebs q.4 hours p.r.n. 2. Symbicort 160/4.5 two puffs inhale b.i.d. 3. Acetaminophen 975 q.8 hours p.r.n., max daily dose of 4000 mg. 4. Docusate 100 mg p.o. b.i.d. 6. Oxycodone 5 mg tabs 1 to 2 tabs q. 4 to 6 hours as needed for pain max daily dose of 4. 7. Tramadol 50 mg 1 to 2 tabs q. 4 to 6 hours as needed for pain, max daily dose of 8. 8. Morphine 2 mg tabs 1 to 3 tabs daily, dose depends on INR. DISCHARGE INSTRUCTIONS: Weightbearing as tolerated. Coumadin dosing 0 mg on , 4 mg on 10/13 then 2 mg each day on 10/14 and 9.2. Last INR on 10/12/18 was 2.44. Pain control with Ultram 50 mg q.6 hours as needed for pain. Max daily dose 8 tabs per day, oxycodone 5 mg tabs may take 1 to 2 tabs every 4 to 6 hours as needed to alternate with Ultram as needed, max of 4 tabs per day. The patient understands to wean off oxycodone as soon as he is able and then off Ultram again as soon as he is able and then finally to Tylenol only if pain allows. Follow up with Dr. Zavala in 2 weeks. CHANTEL GRAHAM [id number]/[facility] #: [id number] [facility] CENTERDuran
[2017-10-12] MEDS: oxyCODONE TAB* 5 MG TAB PO PRN (02:33)
[2017-10-12] MEDS: traMADol TAB* 50 MG PO PRN ×3 (05:32→17:41)
[2017-10-12] MEDS: Heparin VIAL(*) 5000 UNITS/ML VIAL (FIVE THOUSAND) SUBCUT SCH (05:33)
[2017-10-12 05:43] LABS: Hematocrit 33 % (42-52); Hemoglobin 11.2 g/dl (14.0-18.0); Mean Platelet Volume 7.3 um3 (7.4-10.4); Platelet Count 168 10^3/ul (150-450)
[2017-10-12 05:50] LABS: INR 2.44 (0.77-1.02)
[2017-10-12] MEDS: Magnesium Hydroxide LIQ* 30 ML UDC PO SCH (07:20)
[2017-10-12] MEDS: Acetaminophen TAB* 325 MG PO SCH ×2 (07:35→15:32)
[2017-10-12] MEDS: Docusate CAP* 100 MG PO SCH (07:36)
[2017-10-12] MEDS: Mometasone/Formoter 200/5 MDI INH SCH (09:43)
--- NOTE | 2017-10-12 11:08 | PN ---
Progress Note - Progress Note Date of Service: 10/12/17 SOAP: Subjective: []Patient seen at bedside. He stayed last night due to family concerns over being able to care for him at home, concern he was still too weak to be comfortable going home. Today he denies any chest pain, shortness of breath, dizziness, nausea. His right leg pain is present but tolerable. Objective: [] General: Well appearing, NAD RLE: Dressing changed. Incision CDI without discharge and with moderate ecchymosis of the knee , no erythema, fluctuance or induration. Unable to DF/PF well which is baseline. 2+ DP pulse. Cap refill less than two seconds distally Calves supple and nontender without erythema, edema or palpable cords Assessment: []POD 3 RTKA Plan: WBAT PT/OT Stop heparin, coumadin 0 mg today Expect DC home today as long as patient feels comfortable with DC and does well with PT Vital Signs Temp 98.0 F 10/12/17 07:29 Pulse 77 10/12/17 07:29 Resp 16 10/12/17 07:29 BP 106/56 10/12/17 07:29 Pulse Ox 95 10/12/17 07:29 Intake & Output 10/11/17 10/12/17 10/12/17 18:59 06:59 18:59 Intake Total 1237 650 240 Output Total 0 575 Balance 1237 75 240 Intake: IV Fluids 837 LR 837 Oral 400 650 240 Output: Urine 0 575 Other: Estimated Void Large # Bowel Movements 0 # Voids 1 Laboratory Last Values Hgb 11.2 g/dl (14.0-18.0) L 10/12/17 05:21 Hct 33 % (42-52) L 10/12/17 05:21 Plt Count 168 10^3/ul (150-450) 10/12/17 05:21 MPV 7.3 um3 (7.4-10.4) L 10/12/17 05:21 INR (Anticoag Therapy) 2.44 (0.77-1.02) H 10/12/17 05:21 Sodium 135 mmol/L (135-145) 10/10/17 06:23 Potassium 4.0 mmol/L (3.5-5.0) 10/10/17 06:23 Chloride 103 mmol/L (101-111) 10/10/17 06:23 Carbon Dioxide 27 mmol/L (22-32) 10/10/17 06:23 Anion Gap 5 mmol/L (2-11) 10/10/17 06:23 BUN 12 mg/dL (6-24) 10/10/17 06:23 Creatinine 0.76 mg/dL (0.67-1.17) 10/10/17 06:23 Est GFR ( Amer) 122.0 (>60) 10/10/17 06:23 Est GFR (Non-Af Amer) 100.8 (>60) 10/10/17 06:23 BUN/Creatinine Ratio 15.8 (8-20) 10/10/17 06:23 Glucose 105 mg/dL (70-100) H 10/10/17 06:23 Calcium 8.5 mg/dL (8.6-10.3) L 10/10/17 06:23
[2017-10-12 15:46] VITALS: BP 122/60
--- NOTE | 2017-10-13 00:02 | DS ---
DISCHARGE SUMMARY: DATE OF ADMISSION: 10/09/17 DATE OF DISCHARGE: PROVIDER: Dr. Claudio Zavala. PRESCHOOL LEAD TEACHER: CHANTEL Kirkland PRE-OP DIAGNOSIS: Traumatic arthrosis, right knee. PROCEDURE: Right total knee arthroplasty. HISTORY: Mr. Bonilla is a 72-year-old male with years of increasingly severe DICTATION ABRUPTLY ENDS HERE CHANTEL GRAHAM [id number]/[facility] #: [id number] MTDD
== END 2017-10-12 17:45 | disposition home health service (06) | DRG 302 ==
LOC: AA 05:53 → SSU 13:46
PROVIDERS: ADMIT Orthopaedic Surgery; ATTEND Orthopaedic Surgery
PROC: 0SRC0J9 Replacement of Right Knee Joint with Synthetic Substitute, Cemented, Open Approach (ICD-10-PCS; principal; 2017-10-09 07:30)
DX: M12.561 Traumatic arthropathy, right knee (principal); M21.371 Foot drop, right foot; G60.0 Hereditary motor and sensory neuropathy; I10 Essential (primary) hypertension; E78.5 Hyperlipidemia, unspecified; J44.9 Chronic obstructive pulmonary disease, unspecified; K44.9 Diaphragmatic hernia without obstruction or gangrene; R00.1 Bradycardia, unspecified; R11.0 Nausea; R09.02 Hypoxemia; R06.81 Apnea, not elsewhere classified; M21.372 Foot drop, left foot; G62.9 Polyneuropathy, unspecified; Z82.49 Family history of ischemic heart disease and other diseases of the circulatory system; Z87.891 Personal history of nicotine dependence; Z97.4 Presence of external hearing-aid; Z83.3 Family history of diabetes mellitus; Z80.8 Family history of malignant neoplasm of other organs or systems
CPT/HCPCS: 36415; 80048; 85014; 85018; 85049; 85610; 88305; 88311; 94640; 94762; A9270-GY; C1776; J0690; J1100; J1170; J1644; J1885; J2250; J2405; J2704; J2795; J3010